=== PATIENT | male | born 1965 | race Caucasian/White ===

== ENCOUNTER 2018-09-13 12:32 | Outpatient (REF) | payer BC, SELFPAY ==
[2018-09-13 19:21] LABS: ALT 40 U/L (12-78); Anion Gap 10.4 mmol/L (3-11); BUN 19 mg/dL (7-18); CO2 26.6 mmol/L (21.0-32.0); Calcium 8.9 mg/dL (8.5-10.1); Chloride 103 mmol/L (98-107); Glucose 101 mg/dL (70-100); LDL CHOLESTEROL 104 mg/dL (<100); Potassium 3.8 mmol/L (3.5-5.1); Sodium 140 mmol/L (136-145)
== END 2018-09-13 12:52 ==
LOC: NCHCN 12:32
PROVIDERS: PCP Internal Medicine; Visit Provider Internal Medicine
DX: Z00.00 Encounter for general adult medical examination without abnormal findings (principal); M10.072 Idiopathic gout, left ankle and foot
CPT/HCPCS: 80048; 83721; 84460; 84550

== ENCOUNTER 2020-03-26 10:58 | Outpatient (REF) | payer OTHER, BC, SELFPAY ==
[2020-03-26 19:19] LABS: Abs Immature Grans 0.37 k/cumm (0.0-0.09); HCT 40.5 % (40.0-50.0); HGB 13.5 g/dL (13.5-17.5); Mean Corp. HGB Concentration 33.3 g/dL (32.0-36.0); Mean Corpuscular Hemoglobin 33.2 pg (27.0-33.0); Mean Corpuscular Volume 99.5 fL (80-95); Mean Platelet Volume 10.3 fL (8.0-11.0); RBC 4.07 m/cumm (4.50-6.00); RBC Distribution Width 14.8 % (11.8-14.1)
[2020-03-26 19:39] LABS: ALT 106 U/L (16-63); AST 106 U/L (15-37); Albumin 3.4 g/dL (3.4-5.0); Alkaline Phosphatase 148 U/L (46-116); Anion Gap 9.7 mmol/L (3-11); BUN 19 mg/dL (7-18); Bilirubin, Total 0.4 mg/dL (0.2-1.0); CO2 25.3 mmol/L (21.0-32.0); CREATININE 0.85 mg/dL (0.70-1.30); Calcium 8.8 mg/dL (8.5-10.1); Chloride 105 mmol/L (98-107); Glucose 113 mg/dL (74-106); Sodium 140 mmol/L (136-145); TSH (W/Ref FT4) 1.78 uIU/mL (0.36-3.74); Total Protein 7.1 g/dL (6.4-8.2)
[2020-03-26 19:40] LABS: Platelet Count 323 x1000/uL (130-400); White Blood Cell Count 15.69 k/cumm (4.4-10.8)
[2020-03-26 19:41] LABS: Absolute Basophil Count 0.16 k/cumm (0.0-0.2); Absolute Eosinophil Count 0.31 k/cumm (0.0-0.7); Absolute Lymphocyte Count 1.73 k/cumm (1.2-3.4)
[2020-03-26 19:42] LABS: Diff Comment Manual Differential; RBC Morphology Normal
== END 2020-03-26 11:18 ==
LOC: NCHCN 10:58
PROVIDERS: PCP Internal Medicine; Visit Provider Physician Assistant
DX: I10 Essential (primary) hypertension (principal)
CPT/HCPCS: 80053; 84443; 85025

== ENCOUNTER 2025-07-04 08:23 | Inpatient (IN) | payer BC, SELFPAY ==
[2025-07-04] VITALS (29 sets, daily range): BP systolic 114–149; BP diastolic 44–79; PULSE 67–88; RESP 16–24; TEMP 36.8–37; O2SAT 91–95
--- NOTE | 2025-07-04 08:15 | RT.EKG_ITS ---
APPROVED REPORT Exam: Resting ECG Reason for Exam: dyspnea Patient Location: E HR:85 bpm ECG Measurements Heart Rate 85 AXIS NH 173 P 42 QRSd 98 QRS 68 QT 385 T 29 QTc 459 Conclusion Sinus rhythm, rate 85 No interval abnormalities No STEMI T wave inversion III, aVF, no priors available for comparison
--- NOTE | 2025-07-04 08:27 | ED.GENADUL_ITS ---
Discharge Plan Disposition Patient Disposition: Admit to [facility] Discharge Details Clinical Impression: Colitis, Pneumonia Admit Date/Time: 07/04/25 12:34 Admit Provider: Armen Fam Attending Provider: Armen Fam Primary Care Provider: Petey Lozano ED Provider: Chris Miller Discharge Data Discharge Date/Time-TO BE ENTERED AT DEPARTURE: 07/04/25 13:17 HPI General Mode of arrival: ambulatory . Date/Time Provider Initiated Documentation: 07/04/25 08:26 . Limitations to Documentation: no limitations . Information obtained by: patient . History of Present Illness 60 year old M presents to the emergency department with the chief complaint of Cough, right sided flank pain, described as severe, with intensity rated at 7. Quality is described as aching, and is localized to the back, abdomen and right. Patient reports no radiation. Patient started experiencing this day(s) (7) and it has been constant. No relieving factors improve symptom(s), Other factors that worsen symptoms (Coughing) . Patient notes cough, fever/chills (Subjective fever earlier in the week), loss of appetite (Chronic) and shortness of breath (Chronic worse x 1 week). Patient did receive the following treatments prior to arrival, other (Discharge from [facility] yesterday with right lower lobe pneumonia, has yet to fill his antibiotic prescriptions) Related Data Home Medications ?Medication ?Instructions ?Recorded ?Confirmed Albuterol 90 mcg inhalation Q6H PRN ## 2 02/07/14 07/04/25 losartan 50 mg-hydrochlorothiazide 1 tab-cap PO DAILY #1 tab-cap 02/07/14 07/04/25 12.5 mg tablet furosemide 20 mg tablet 20 mg PO DAILY 07/04/2506/06 metoprolol succinate 100 mg 100 mg PO ONCE 07/04/25 tablet,extended release 24 hr pantoprazole 40 mg tablet,delayed 40 mg PO DAILY 07/0407/04/25 release Allergies Allergy/AdvReac Type Severity Reaction Status Date / Time No Known Allergies Allergy Verified 07/04/25 08:39 Review of Systems Constitutional Constitutional: Reports fatigue, Reports fever(s) (Subjective), Denies headache(s) and Denies weakness ENT Ears, Nose, Mouth, and Throat: Denies headache(s) and Denies neck pain Cardiovascular Cardiovascular: Denies chest pain and Reports dyspnea Respiratory Respiratory: Reports cough and Reports dyspnea Gastrointestinal Gastrointestinal: Reports abdominal pain (Right sided), Denies melena, Denies hematochezia, Denies constipation and Reports diarrhea Genitourinary Genitourinary: Denies dysuria Musculoskeletal Musculoskeletal: Reports back pain and Denies neck pain Integumentary/Breasts Skin/Breast: Denies rash Neurologic Neurologic: Denies headache(s) and Denies weakness Psychiatric Psychiatric: Reports depression and Denies suicidal ideation Endocrine Endocrine: Reports fatigue Hematologic/Lymphatic Hematologic/Lymphatic: Denies easy bleeding and Denies easy bruising Exam Const General: cooperative, healthy appearing and comfortable Orientation: alert, awake and oriented x3 HENMT Head: normal to inspection, normocephalic and atraumatic Ears: hearing grossly normal bilaterally General nose exam: external nose normal Face and sinus: normal facial exam Mouth: moist mucous membranes Throat: posterior oropharynx normal Eyes General: appearance normal, both eyes and all related structures Conjunctivae: conjunctivae normal Neck Neck: normal visual inspection, full ROM, no lymphadenopathy, no meningeal signs, trachea midline and supple Resp Effort & Inspection: normal respiratory effort, able to speak in complete sentences and cough Auscultation: diminished lung sounds on the right in the lower lung blair and wheezes (Scattered throughout, mostly clear with cough) Cardio Rate: regular rate Rhythm: regular rhythm GI Inspection: other (Ecchymosis both left and right lower quadrants) Palpation: soft, not firm, no guarding, not rigid, nontender and other (Well- healed prior surgical incision) Auscultation: normal bowel sounds Back/Spine/Pelvis Back: CVA tenderness (Right sided) Thoracic/Lumbar Spine: No lumbar spinal tenderness Skin General skin exam: no rashes or lesions noted Neuro General: patient alert, patient awake, patient oriented x3, moves all extremities and no focal motor deficits Cognition: normal cognition Speech: speech normal Gait: normal gait Sensory Exam: no sensory deficits noted Extrem General: normal to inspection, full ROM, capillary refill normal, no pedal edema and no calf tenderness Psych Appearance: grossly normal Mental Status: mental status grossly normal Medical Decision Making Armen is a 60-year-old male, 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 History of GERD, hypertension, morbid obesity. He states that he was diagnosed with COVID and since that time everything has gone downhill, he having had developed a abscess in his neck and treated at [facility], this is now completely resolved. He subsequently developed what he describes as both diverticulitis and a bleeding ulcer in his stomach requiring hospitalization and receiving blood a few years ago. 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 Most recently about 1 week ago he developed increased coughing and what he describes as right flank and back pain. He was admitted to [facility] on 06/30/2025 and subsequently discharged yesterday. He is unable to give me much information regarding this hospitalization but he did bring his discharge summary. Diagnosis was sepsis, right lower lobe pneumonia, back pain, abdominal pain, depressive disorder, chronic atelectasis, severe obesity, hyponatremia. He was discharged with prescriptions to fill including metronidazole, Ceftin, azithromycin, and simethicone. He is planning to fill these prescriptions today. He has follow- up scheduled on 07/15/2025 at [facility]. Clinically he appears well, nontoxic, he does have a slightly productive hacking cough. He is afebrile. O2 sats are 93% on room air. And he has diminished breath sounds in the right lower lobe. He denies any alcohol, tobacco, or drug use. He does not appear septic. Will attempt to review the medical discharge summary from [facility]. In the meantime we will obtain routine screening laboratory values including a urinalysis given his right sided flank pain, a single troponin, BNP, and a D-dimer although low suspicion for acute cardiac etiology or PE. Upon reevaluation patient is resting comfortably, using his phone without diffic ulty. No shortness of breath. O2 sat 94% on room air. Labs reviewed revealing white blood cell count of 11.14 and a D-dimer of 6525 sodium 134 potassium 3.1, creatinine 0.9 with a GFR of 97.78, magnesium 1.6 total bili of 2.3 AST 40 alk phosphatase 132 BNP 755 negative flu, COVID, RSV. Lipase 50. Troponin and urinalysis pending. Chest x-ray reviewed by me confirming radiology as mild increased interstitial markings in the lung bases pneumonia should be considered. Pulmonary edema should also be considered. Mild prominence of the pulmonary vasculature which may represent pulmonary venous congestion. Will plan to replenish potassium and magnesium. Will obtain CTA of the chest abdomen and pelvis to further evaluate his right sided pain, concern for PE, cholecystitis, atypical diverticulitis, renal stone, ect. In the meantime I was able to review the discharge report from [facility] CT revealed stable right diaphragm penetration with associated recent atelectasis difficult to exclude superimposed infection and dilated pulmonary arterial trunk correlate with signs of symptoms of pulmonary hypertension with no acute intra-abdominal findings. Ultrasound of the abdomen was completed with findings suggestive of mild cirrhosis with no mass or ductal dilatation. Normal gallbladder and common bile duct. Patient had fever during his hospitalization and was started on ceftriaxone and azithromycin for pneumonia and then was broadened with Flagyl for possible intra-abdominal source. Fevers resolved and his white blood cell count normalized. CRP was also trending down. Blood culture 104 grew what appeared to be a strep species but was thought to be contamination. Repeat blood cultures were negative. Patient with chronic hyponatremia. For his ongoing chronic abdominal pain was referred to gastroenterology. Follow-up with PCP in 1-2 weeks. Troponin is 9. Abdomen remains soft, nontender. No discomfort over the right upper quadrant. Awaiting CTA. INR of 2.0 Patient noted to be walk around his hospital room without complication. Drinking bottled water. Appears to be in no acute distress. I received a call from radiology at approximately 11:24 AM, findings of diffuse pneumatosis of the ascending or right colon with surrounding streaking. Surgical consultation recommended. Enlarged lymph nodes in the abdomen and pelvis noted. 3 areas of ground glass infiltrate in the left lung. Right lung is clear. No PE. Case was then discussed with our surgical team, Dr. Aguayo, who will review the case and come evaluate the patient. Please see his consultation note. Recommends IV antibiotics. Will order Zosyn. Recommends adding C. difficile testing. Recommends medical admission with surgical consult. Lactate of 1.1. Upon reevaluation patient is coughing, endorsing right sided back pain. Will give 4 mg IV morphine. Case was then discussed with our hospitalist team, Dr. Fam, who was agreeable for admission. He will write admitting orders. Standard discharge and return precautions were provided. Patient understands, is agreeable to this plan, and has no additional questions or concerns upon discharge. This documentation was generated using [employer] system, please disregard any oddities of phrase or misspellings. Medical Records Medical records reviewed: Yes I reviewed the patient's medical records. Lab Data Lab results reviewed: Yes I reviewed the patient's lab results. ECG Data Attestation: I personally reviewed and interpreted this ECG (s) as follows: Interpretation: Sinus rhythm, ventricular rate of 85. No STEMI. Please see official report by Dr. Pena [facility] All Active Problems (Updated 07/04/25 @ 14:03 by TREVER Hobbs) Pneumonia (Acute) Colitis (Acute) Social History Smoking risk assessment performed?: No Housing: apartment
[2025-07-04 09:27] LABS: Abs Immature Grans 0.13 10^3/uL (0.0-0.06); HCT 39.4 % (40.0-50.0); HGB 13.5 g/dL (13.5-17.5); Immature Grans % 1.2 %; MCH 32.7 pg (27.0-33.0); MCHC 34.3 % (32.0-36.0); MCV 95 fL (80-95); MPV 9.6 fL (8.0-11.0); Platelet Count 181 10^3/uL (130-400); RBC 4.13 10^6/uL (4.36-5.78); RDW 13.8 % (11.8-14.1); RDW-SD 48.5 fL; WBC 11.14 10^3/uL (4.4-10.8)
--- NOTE | 2025-07-04 09:40 | DI.RAD_ITS ---
Exam(s) XR CHEST 2V PA LATERAL EXAM: XR CHEST 2V PA LATERAL CLINICAL HISTORY: Chest pain TECHNIQUE: 2D digital imaging was performed of the chest. Two images were obtained. PA and lateral views were obtained. COMPARISON: No exams were available for comparison FINDINGS: MEDIASTINUM: Normal. HEART: The heart is at the upper limits of normal in size. PULMONARY VASCULATURE: There is mild prominence of the pulmonary vasculature which may represent venous congestion. LUNGS: There are increased interstitial markings in the left lung base and the right lower lobe. PLEURAL SPACE: No pleural effusion or pneumothorax. BONE:Within normal limits for the patient's age. OTHER FINDINGS:There is elevation of the right hemidiaphragm. IMPRESSION: 1. Mild prominence of the pulmonary vasculature which may represent pulmonary venous congestion. 2. Mild increased interstitial markings in the lung bases. Pneumonia should be considered. Pulmonary edema should also be considered. Please correlate clinically. DATA REPOSITORY: RADIATION DOSE DELIVERED:
[2025-07-04 09:41] LABS: INR 2.0 (0.9-1.1); PTT Activated 28.7 sec (20.6-30.2); Prothrombin Time 18.8 sec (9.1-11.1)
[2025-07-04 09:52] LABS: D-Dimer 6525 ng/mlFEU (<500)
[2025-07-04 09:56] LABS: ALT 32 U/L (16-63); AST 40 U/L (15-37); Albumin 2.8 g/dL (3.4-5.0); Alkaline Phosphatase 132 U/L (46-116); Anion Gap 12.1 mmol/L (3-11); BUN 7 mg/dL (7-18); Bilirubin, Total 2.3 mg/dL (0.2-1.0); CO2 24.9 mmol/L (21.0-32.0); Calcium 8.7 mg/dL (8.5-10.1); Chloride 97 mmol/L (98-107); Estimated GFR 97.78 (mL/min/1.73m2); Glucose 116 mg/dL (74-106); Lipase 50 U/L (<78); Magnesium 1.6 mg/dL (1.8-2.4); NT-proBNP 755 pg/mL (<300); Potassium 3.1 mmol/L (3.5-5.1); Sodium 134 mmol/L (136-145); Total Protein 7.7 g/dL (6.4-8.2); Troponin I 9 ng/L (<or=76)
[2025-07-04 10:10] LABS: COVID-19 PCR Negative (Negative); RSV PCR Negative (Negative)
--- NOTE | 2025-07-04 10:10 | DI.CT_ITS ---
Exam(s) CT CHEST PE ABD PELVIS W EXAM: CT CHEST PE ABD PELVIS W CLINICAL HISTORY: R flank pain, RLL pneumonia,elevated dimer/Bili. TECHNIQUE: Imaging Protocol: Axial CT angiography was performed with multi- slice acquisition and multi-planar and/or 3D reconstructions. CONTRAST MATERIAL: Intravenous: Omnipaque 350 Contrast volume:100 ml Oral: None COMPARISON: CR XR CHEST 2V PA LATERAL from 07/04/2025 FINDINGS: CHEST: PULMONARY ARTERIES: There are no intra-arterial filling defects to suggest the presence of acute pulmonary emboli. LUNGS: There are 3 areas of ground-glass infiltrate in the left upper lobe.The largest of these measures 2.7 x 1.5 cm. There is some elevation the right hemidiaphragm and some atelectasis in the right lung base at the level the elevated hemidiaphragm. There are no pleural effusions. MEDIASTINUM: There is no hilar nor mediastinal adenopathy. Visualized thyroid unremarkable. CARDIAC: There is mild cardiomegaly. No pericardial effusion.Thoracic aorta unremarkable and no evidence of dissection. OSSEOUS: No significant osseous lesions.No fractures evident.. ABDOMEN: There is no ascites. LIVER: There are no focal hepatic lesions nor dilatation of intrahepatic ducts. GALLBLADDER/BILIARY: No obvious gallbladder pathology. CBD is not dilated. PANCREAS: No evidence of pancreatic mass nor dilatation of the pancreatic duct. SPLEEN: Distinct spleen not seen. Instead there are multiple splenules. ADRENALS: Right adrenal gland unremarkable. There is a nodule in the mid the associated with the left adrenal gland but this appears to be separate from the adrenal gland and 1 of the mobile splenules. KIDNEYS:No cysts evident. No calculi nor hydronephrosis. No solid renal masses. ABDOMINAL AORTA: Abdominal aorta is not enlarged. LYMPH NODES: There are multiple slightly enlarged lymph nodes in the retroperitoneum in the mesentery. ABDOMINAL WALL/GI: No evidence of significant anterior abdominal wall hernia. However, there appears to be some cellulitis at the level the umbilicus. The main concern here is the appearance of the ascending-right colon and cecum which is distended and exhibits pneumatosis. Also surrounding streaking. PELVIS: LYMPH NODES: There are also some enlarged lymph nodes in both sides the pelvis GI: No evidence of appendicitis.Redundant sigmoid with diverticuli but no evidence of acute diverticulitis. URINARY BLADDER: No calculi nor masses evident REPRODUCTIVE: Prostate not enlarged. Seminal vesicles unremarkable. OSSEOUS: No significant osseous lesions. No fractures. Chronic disc space narrowing at L5-S1 level. No listhesis. IMPRESSION: 1. The main acute finding in the abdomen is diffuse pneumatosis of the ascending-right colon. Also surrounding streaking. Surgical consultation recommended. 2. There also enlarged lymph nodes in the abdomen and pelvis. 3. A distinct spleen is not evident. Instead there are multiple splenules. 4. There are 3 areas of ground-glass infiltrate in the left lung, largest measuring 2.5 x 1.7 cm. Right lung is clear. There are no pleural effusions. 5. No evidence of acute pulmonary emboli, as per request. Report called by myself to ER provider 07/04/2025 at 11:24 am. Surgical consult recommended RADIATION DOSE DELIVERED: 1,569.33mGy.cm Total DLP DATA REPOSITORY: All CT scans at this facility are submitted to the National Radiology Data Registry (NRDR) Dose Index Registry (DIR) with the [employer] (ACR). RADIATION OPTIMIZATION: All CT scans at this facility use at least one of these dose optimization techniques: automated exposure control; mA and/or kV adjustment per patient size (includes targeted exams where dose is matched to clinical indication); or iterative reconstruction.
[2025-07-04] MEDS: Normal Saline - Diluent 50 ML VIAL IJ (10:44)
[2025-07-04] MEDS: Normal Saline Flush 10 ML SYR IVP ×3 (10:44→23:44)
[2025-07-04] MEDS: Omnipaque 350 MG/ML 500 ML BTL-Imaging package IJ (10:45)
[2025-07-04] MEDS: Potassium Chloride 20 MEQ TABCR (11:12)
[2025-07-04 11:13] LABS: Troponin I 11 ng/L (<or=76)
[2025-07-04] MEDS: Magnesium Oxide 400 MG TAB 800 MG PO (11:14)
[2025-07-04 12:05] LABS: Glucose Negative (Negative)
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
[2025-07-04 12:19] LABS: C & S Indicated? No; RBC 0-2 HPF (0-2); WBC 0-2 HPF (0-5)
--- NOTE | 2025-07-04 13:14 | W.PC.ACHO ---
Registration Status: REG ER Primary Language: Preferred Language: Belarusian ED Information & Data Chief Complaint GenMedical 07/04/25 09:30 Chief Complaint GenMedical 07/04/25 08:28 Triage Note DC'd from [facility] 07/04/25 08:28 Hospital yesterday for abd pain. Complaining of ongoing SOB, report he had this in the hospital as well. Also has low back pain X2 weeks. Has had every test. Reports SOB worse with exertion. Back hunt, SOB, abd pain, multiple complaints. Most Recent Vital Signs Temperature 37.0 C 07/04/25 09:30 Temperature Source Tympanic 07/04/25 09:30 Pulse 69 07/04/25 11:20 Pulse 69 07/04/25 11:20 Respiratory Rate 22 07/04/25 09:31 Respiratory Effort Normal 07/04/25 09:31 Respiratory Depth Normal 07/04/25 09:31 Respiratory Pattern Normal 07/04/25 09:31 Blood Pressure 144/53 H 07/04/25 11:16 Blood Pressure Mean 85 07/04/25 11:16 Blood Pressure Position Sitting 07/04/25 09:30 Pulse Oximetry 94 07/04/25 11:20 Oxygen Delivery Method Room Air 07/04/25 09:30 Oxygen Flow Rate 0 07/04/25 09:30 Pain Level 10 07/04/25 09:30 Allergies No Known Allergies Allergy (Verified 07/04/25 08:39) Active Medications Generic Name Dose Route Start Last Admin Trade Name Freq PRN Reason Stop Dose Admin Iohexol 500 ml 07/04/25 10:45 07/04/25 10:45 Omnipaque 350 Mg/Ml 500 Ml Btl-Imaging Package IJ 08/03/25 23:59 100 ml DIRECTED ALEC Administration Sodium Chloride 0 ml 07/04/25 10:39 07/04/25 10:44 Normal Saline Flush 10 Ml Syr IVP 10 ml PRN PRN Administration Sodium Chloride 50 ml 07/04/25 10:45 07/04/25 10:44 Normal Saline - Diluent 50 Ml Vial IJ 50 ml DIRECTED ALEC Administration Diet Orders Category Date Time Status Nothing Per Oral [DIET] Nutrition 07/04/25 12:35 Active Diagnostics 07/04/25 07/04/25 07/04/25 Range/Units 13:00 11:52 10:44 WBC (4.4-10.8) 10^3/uL RBC (4.36-5.78) 10^6/uL Hgb (13.5-17.5) g/dL Hct (40.0-50.0) % MCV (80-95) fL MCH (27.0-33.0) pg MCHC (32.0-36.0) % RDW (11.8-14.1) % Plt Count (130-400) 10^3/uL MPV (8.0-11.0) fL Immature Gran % % Neutrophils % % Lymphocytes % % Monocytes % % Eosinophils % % Basophils % % Nucleated RBC % (0.0-0.3) % Absolute Neutrophils (1.2-6.7) 10^3/uL Absolute Lymphocytes (1.2-3.4) 10^3/uL Absolute Monocytes (0.1-0.8) 10^3/uL Absolute Eosinophils (0.0-0.7) 10^3/uL Absolute Basophils (0.0-0.2) 10^3/uL PT (9.1-11.1) sec INR (0.9-1.1) APTT (20.6-30.2) sec D-Dimer (<500) ng/mlFEU VBG Lactate 1.1 (<or=2.0) mmol/L Sodium (136-145) mmol/L Potassium (3.5-5.1) mmol/L Chloride (98-107) mmol/L Carbon Dioxide (21.0-32.0) mmol/L Anion Gap (3-11) mmol/L BUN (7-18) mg/dL Creatinine (0.70-1.30) mg/dL Est GFR (CKD-EPI 2020) (mL/min/1.73m2) Glucose (74-106) mg/dL Calcium (8.5-10.1) mg/dL Magnesium (1.8-2.4) mg/dL Total Bilirubin (0.2-1.0) mg/dL AST (15-37) U/L ALT (16-63) U/L Alkaline Phosphatase (46-116) U/L Troponin I Pending 11 (<or=76) ng/L NT-Pro-B Natriuret Pep (<300) pg/mL Total Protein (6.4-8.2) g/dL Albumin (3.4-5.0) g/dL Lipase (<78) U/L Urine Color Yellow (Yellow) Urine Clarity Clear (Clear) Urine pH 6.0 (5-8) Ur Specific [place] <= 1.005 (1.005-1.025) Urine Protein 30 H (Neg-Trace) mg/dL Urine Ketones Negative (Negative) mg/dL Urine Blood Negative (Negative) Urine Nitrite Negative (Negative) Urine Bilirubin Negative (Negative) Urine Urobilinogen 1.0 H (Up to 0.2) mg/dL Ur Leukocyte Esterase Negative (Negative) Urine RBC 0-2 (0-2) HPF Urine WBC 0-2 (0-5) HPF Ur Epithelial Cells Rare (Negative) HPF Urine Crystals Negative (Negative) HPF Urine Bacteria Negative (Negative) HPF Urine Casts Negative (Negative) LPF Urine Mucus Trace (Negative) Ur Culture Indicated? No Urine Glucose Negative (Negative) mg/dL COVID-19 Source SARS-CoV-2 (PCR) (Negative) Influenza Type A (PCR) (Negative) Influenza Type B (PCR) (Negative) RSV (PCR) (Negative) 07/04/25 Range/Units 09:15 WBC 11.14 H (4.4-10.8) 10^3/uL RBC 4.13 L (4.36-5.78) 10^6/uL Hgb 13.5 (13.5-17.5) g/dL Hct 39.4 L (40.0-50.0) % MCV 95 (80-95) fL MCH 32.7 (27.0-33.0) pg MCHC 34.3 (32.0-36.0) % RDW 13.8 (11.8-14.1) % Plt Count 181 (130-400) 10^3/uL MPV 9.6 (8.0-11.0) fL Immature Gran % 1.2 % Neutrophils % 69.8 % Lymphocytes % 13.3 % Monocytes % 13.9 % Eosinophils % 1.4 % Basophils % 0.4 % Nucleated RBC % 0.0 (0.0-0.3) % Absolute Neutrophils 7.78 H (1.2-6.7) 10^3/uL Absolute Lymphocytes 1.48 (1.2-3.4) 10^3/uL Absolute Monocytes 1.55 H (0.1-0.8) 10^3/uL Absolute Eosinophils 0.16 (0.0-0.7) 10^3/uL Absolute Basophils 0.04 (0.0-0.2) 10^3/uL PT 18.8 H (9.1-11.1) sec INR 2.0 H (0.9-1.1) APTT 28.7 (20.6-30.2) sec D-Dimer 6525 H (<500) ng/mlFEU VBG Lactate (<or=2.0) mmol/L Sodium 134 L (136-145) mmol/L Potassium 3.1 L (3.5-5.1) mmol/L Chloride 97 L (98-107) mmol/L Carbon Dioxide 24.9 (21.0-32.0) mmol/L Anion Gap 12.1 H (3-11) mmol/L BUN 7 (7-18) mg/dL Creatinine 0.9 (0.70-1.30) mg/dL Est GFR (CKD-EPI 2020) 97.78 (mL/min/1.73m2) Glucose 116 H (74-106) mg/dL Calcium 8.7 (8.5-10.1) mg/dL Magnesium 1.6 L (1.8-2.4) mg/dL Total Bilirubin 2.3 H (0.2-1.0) mg/dL AST 40 H (15-37) U/L ALT 32 (16-63) U/L Alkaline Phosphatase 132 H (46-116) U/L Troponin I 9 (<or=76) ng/L NT-Pro-B Natriuret Pep 755 H (<300) pg/mL Total Protein 7.7 (6.4-8.2) g/dL Albumin 2.8 L (3.4-5.0) g/dL Lipase 50 (<78) U/L Urine Color (Yellow) Urine Clarity (Clear) Urine pH (5-8) Ur Specific [place] (1.005-1.025) Urine Protein (Neg-Trace) mg/dL Urine Ketones (Negative) mg/dL Urine Blood (Negative) Urine Nitrite (Negative) Urine Bilirubin (Negative) Urine Urobilinogen (Up to 0.2) mg/dL Ur Leukocyte Esterase (Negative) Urine RBC (0-2) HPF Urine WBC (0-5) HPF Ur Epithelial Cells (Negative) HPF Urine Crystals (Negative) HPF Urine Bacteria (Negative) HPF Urine Casts (Negative) LPF Urine Mucus (Negative) Ur Culture Indicated? Urine Glucose (Negative) mg/dL COVID-19 Source Nasopharynx SARS-CoV-2 (PCR) Negative (Negative) Influenza Type A (PCR) Negative (Negative) Influenza Type B (PCR) Negative (Negative) RSV (PCR) Negative (Negative) Intake and Output - 24 Hour Total 07/04/25 08:23 thru 07/04/25 08:28 Weight 142.4 kg Falls Risk Assessment History of Falls No History 07/04/25 09:30 Contributing Factors No Factors 07/04/25 09:30 Ambulatory Aids Independent 07/04/25 09:30 Tubes/Lines None 07/04/25 09:30 Gait Evaluation No gait disturbance 07/04/25 09:30 Cognition No cognitive impairment 07/04/25 09:30 Fall Total Score 0 07/04/25 09:30 Level of Risk Standard/Low Risk 07/04/25 09:30 Problems (Last Reviewed 07/04/25 @ 09:04 by TREVER Hobbs) Colitis (Acute) v v v v v v v v v Sending and/or Receiving Nurses: Please use comment section below to note any information pertinent to the patient hand-off not included above. Information / Comments: Pt discharged from [facility] yestereday for admission for PNA, presents with abd pain, diagnosis of colitis, received zosyn in ED. Pt alert, oriented, verbal, ambulatory, voiding without issue. Report received from: MODESTO Perez
[2025-07-04] MEDS: PIPERACILLIN/TAZO 3.375 GM in Normal Saline 50 ML IVPB ×3 (13:16→23:53)
[2025-07-04] MEDS: MORPHine 4 MG/ML SYR IVP ×4 (13:17→23:44)
[2025-07-04 13:27] LABS: Troponin I 8 ng/L (<or=76)
[2025-07-04] MEDS: POTASSIUM CHLORIDE/D5-0.45NACL 1,000 ML 125 MEQ IV (13:53)
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
[2025-07-04] MEDS: PHYTONADIONE 10 MG in Normal Saline 50 ML 200 MG IVPB (17:28)
[2025-07-04 17:45] LABS: Acetaminophen < 2 ug/mL (10-30)
[2025-07-04 20:11] LABS: MRSA PCR Negative (Negative)
--- NOTE | 2025-07-04 22:29 | RESPIRATORY ---
RT spoke with patient regarding DION. Pt. has home BIPAP, ResMed with humidifier attached. Pt. reports does not use O2 at baseline and it's a brand new machine that pt. received it 2 months ago Through [employer]. Settings: GIOVANYO, Max IPAP: 22 Min EPAP: 12 PS: 4 Mask: Large size Nasal pillow
[2025-07-05] MEDS: POTASSIUM CHLORIDE/D5-0.45NACL 1,000 ML 125 MEQ IV ×2 (03:34→17:20)
[2025-07-05 04:00] VITALS: BP 127/51; PULSE 72; RESP 16; TEMP 36.8; O2SAT 94
[2025-07-05] MEDS: Normal Saline Flush 10 ML SYR IVP ×6 (04:23→20:06)
[2025-07-05] MEDS: MORPHine 4 MG/ML SYR IVP ×4 (04:23→16:02)
[2025-07-05] MEDS: Benzonatate 200 MG CAP PO (06:19)
[2025-07-05] MEDS: PIPERACILLIN/TAZO 3.375 GM in Normal Saline 50 ML IVPB ×3 (06:21→17:28)
[2025-07-05 06:36] LABS: Abs Immature Grans 0.11 10^3/uL (0.0-0.06); HCT 35.9 % (40.0-50.0); HGB 12.7 g/dL (13.5-17.5); Immature Grans % 0.9 %; MCH 34.1 pg (27.0-33.0); MCHC 35.4 % (32.0-36.0); MCV 97 fL (80-95); MPV 10.1 fL (8.0-11.0); Platelet Count 194 10^3/uL (130-400); RBC 3.72 10^6/uL (4.36-5.78); RDW 13.7 % (11.8-14.1); RDW-SD 48.9 fL; WBC 11.99 10^3/uL (4.4-10.8)
[2025-07-05 06:57] LABS: RBC Morphology Normal
[2025-07-05 06:59] LABS: INR 1.6 (0.9-1.1); Prothrombin Time 15.7 sec (9.1-11.1)
[2025-07-05 07:06] LABS: ALT 26 U/L (16-63); AST 33 U/L (15-37); Albumin 2.4 g/dL (3.4-5.0); Alkaline Phosphatase 115 U/L (46-116); Anion Gap 9.5 mmol/L (3-11); BUN 7 mg/dL (7-18); Bilirubin, Total 2.7 mg/dL (0.2-1.0); CO2 25.5 mmol/L (21.0-32.0); Calcium 8.3 mg/dL (8.5-10.1); Chloride 103 mmol/L (98-107); Estimated GFR 101.32 (mL/min/1.73m2); Glucose 123 mg/dL (74-106); Magnesium 1.9 mg/dL (1.8-2.4); Potassium 3.1 mmol/L (3.5-5.1); Sodium 138 mmol/L (136-145); Total Protein 6.8 g/dL (6.4-8.2)
[2025-07-05 07:56] LABS: Vitamin B12 1433 pg/mL (193-986)
[2025-07-05 08:04] VITALS: BP 118/64; PULSE 72; RESP 17; TEMP 36.7; O2SAT 94
[2025-07-05] MEDS: Furosemide 20 MG TAB PO (08:46)
[2025-07-05] MEDS: Losartan 50 MG TAB PO (08:47)
[2025-07-05] MEDS: hydroCHLOROthiazide 12.5 MG TAB PO (08:47)
[2025-07-05] MEDS: Pantoprazole 40 MG TABCR PO (08:47)
[2025-07-05] MEDS: Potassium Chloride 20 MEQ TABCR 40 MEQ PO ×3 (10:20→20:06)
[2025-07-05] MEDS: Phytonadione 5 MG TABLET 10 MG PO (10:20)
[2025-07-05 11:14] VITALS: BP 126/63; PULSE 70; RESP 17; TEMP 36.6; O2SAT 95
[2025-07-05 12:46] LABS: EPI 027-NAP1-B1 PRESUMPTIVE NEGATIVE
[2025-07-05] MEDS: Normal Saline - Diluent 50 ML VIAL IJ (14:21)
[2025-07-05] MEDS: Omnipaque 350 MG/ML 100 ML BTL IJ (14:22)
[2025-07-05] MEDS: Omnipaque 350 MG/ML 50 ML BTL IJ (14:34)
--- NOTE | 2025-07-05 14:36 | DI.CT_ITS ---
Exam(s) CT ABDOMEN PELVIS CTA EXAM: CT ABDOMEN PELVIS CTA CLINICAL HISTORY: mesenteric ischemia. TECHNIQUE: Imaging Protocol: Axial computed tomography images with coronal and sagittal reformatted images were created and reviewed CONTRAST MATERIAL: Intravenous: Omnipaque 350 Contrast volume:100 ml Oral: None COMPARISON: CT CT CHEST PE ABD PELVIS W from 07/04/2025 FINDINGS: Visualized lung bases: Elevated right hemidiaphragm with adjacent atelectasis in right lung base again noted. Focal area of infiltrate noted in the partially included left upper lobe, this corresponding to 1 of the 3 areas of similar infiltrate seen in the left lung on chest CT scan of 07/04/2025. There are no pleural effusions. ABDOMEN: AORTA AND BRANCHES: There is no evidence of abdominal aortic aneurysm nor dissection.There is no aneurysmal dilatation nor prominent stenosis evident in the common and iliac arteries and both common femoral arteries appear unremarkable. There is no evidence of stenosis at the origin of the celiac and superior mesenteric arteries and their branches are patent. There is no evidence of embolus within the SMA. The inferior mesenteric artery is also patent. Solitary right renal artery appears unremarkable. 2 left renal arteries noted, without significant stenosis. GI: There is air seen throughout the large bowel and the ascending-right colon is again noted be dilated. However, the previously described pneumatosis in the right-side of the colon is no longer evident. There is no free air but there is a small amount fluid in the pericolic gutter.. There is no fecal material in the colon, just air throughout the length of the colon and rectum. No evidence of bowel obstruction. No free air. No abscess. There is no air-gas in the portal venous system. LIVER: There are no focal hepatic lesions nor dilatation of intrahepatic ducts. GALLBLADDER/BILIARY: Mildly distended. No gallbladder wall edema nor pericholecystic fluid. No radiopaque calculi. CBD is not dilated. PANCREAS: No evidence of pancreatic mass nor dilatation of the pancreatic duct. SPLEEN: No spleen. Splenules in left upper quadrant are again noted. Splenic vein is diminutive but patent. Portal vein confluence patent. No thrombosis of the portal vein. ADRENALS: Right adrenal gland unremarkable. Left adrenal region nodule again noted difficult to determine as intrinsic adrenal nodule versus 1 of the multiple splenules in left upper quadrant. KIDNEYS: No cysts evident. No calculi nor hydronephrosis. No solid renal masses. LYMPH NODES: Multiple slightly enlarged lymph nodes again noted in the retroperitoneum and mesentery. No abnormal mesenteric fluid collections. ABDOMINAL WALL: Small fat containing umbilical hernia. There appears to be some cellulitis in this region again noted, unchanged. PELVIS: LYMPH NODES: There is no intrapelvic nor inguinal adenopathy. GI: No evidence of appendicitis.No evidence of sigmoid diverticulitis. URINARY BLADDER: No calculi nor masses evident REPRODUCTIVE: Prostate size normal. Seminal vesicles unremarkable. OSSEOUS: No fractures. No significant osseous lesions. IMPRESSION: 1. Compared to the CT scan of 07/04/2025 the previously described pneumatosis in the ascending-right colon is less evident on the present study. There is no free air but there does appear to be a small amount of fluid in the right paracolic gutter at and below this level now evident. There is no gas in the portal venous system. Close follow-up recommended 2. The celiac, SMA, and CARIDAD arteries are patent. No significant atherosclerotic narrowing and no evidence of intraluminal filling defects/emboli 3. Patchy infiltrate in the left lung, as evident on yesterday's chest CT scan. Preliminary V rad report was reviewed. RADIATION DOSE DELIVERED: 1,388.9mGy.cm Total DLP DATA REPOSITORY: All CT scans at this facility are submitted to the National Radiology Data Registry (NRDR) Dose Index Registry (DIR) with the [employer] (A[employer]). RADIATION OPTIMIZATION: All CT scans at this facility use at least one of these dose optimization techniques: automated exposure control; mA and/or kV adjustment per patient size (includes targeted exams where dose is matched to clinical indication); or iterative reconstruction.
[2025-07-05 15:07] VITALS: BP 112/57; PULSE 74; RESP 16; TEMP 36.5; O2SAT 94
--- NOTE | 2025-07-05 15:10 | DI.VRAD_ITS ---
PROCEDURE INFORMATION: Exam: CTA Abdomen and Pelvis With Contrast Exam date and time: 07/05/2025 2:21 PM Age: 60 years old Clinical indication: Abdominal pain; Generalized; Mesenteric ischemia TECHNIQUE: Imaging protocol: Computed tomographic angiography of the abdomen and pelvis with contrast. Exam focused on the arteries. 3D rendering (Not supervised by radiologist): MIP and/or 3D reconstructed images were created by the technologist. Radiation optimization: All CT scans at this facility use at least one of these dose optimization techniques: automated exposure control; mA and/or kV adjustment per patient size (includes targeted exams where dose is matched to clinical indication); or iterative reconstruction. Contrast material: OMNI 350; Contrast volume: 125 ml; Contrast route: INTRAVENOUS (IV); COMPARISON: CT CHEST PE ABD PELVIS W 07/04/2025 10:41 AM FINDINGS: Lungs: Consolidation in the right middle lobe and right lower lobe. Patchy opacity in the lingula. Findings may represent atelectasis or pneumonia. Coronary arteries: Coronary artery calcifications may indicate coronary artery disease. Aorta: No aortic aneurysm. No aortic dissection. Celiac and mesenteric arteries: No occlusion or significant stenosis. Renal arteries: No occlusion or significant stenosis. Right iliac arteries: No occlusion or significant stenosis. Left iliac arteries: No occlusion or significant stenosis. Liver: No mass. Gallbladder and biliary ducts: No gallstones in the gallbladder Pancreas: Unremarkable. No mass. No ductal dilation. Spleen: The spleen is absent. There are multiple small splenules in the left upper quadrant Adrenal glands: 24 x 24 mm left adrenal nodule. Seventy Hounsfield units.. Kidneys and ureters: There is no evidence of renal or ureteral calcifications. Stomach and bowel: Unremarkable. No obstruction. No mucosal thickening. Appendix: No evidence of appendicitis. Intraperitoneal space: No evidence of mesenteric ischemia. Mild amount of free fluid in the right paracolic gutter Lymph nodes: Unremarkable. No enlarged lymph nodes. Urinary bladder: Unremarkable. No mass. Reproductive: Unremarkable as visualized. Bones/joints: No acute fracture. Soft tissues: Unremarkable. IMPRESSION: 1. No evidence of mesenteric ischemia. 2. Consolidation in the right middle lobe and right lower lobe. Patchy opacity in the lingula. Findings may represent atelectasis or pneumonia. 3. 24 x 24 mm left adrenal nodule. Seventy Hounsfield units.. Non-emergent adrenal CT is recommended. (Reference: Varun) References: Lazo-Aguayo WW, et al. Management of Incidental Adrenal Masses: A White Paper of the ACR Incidental Findings Committee. J Am Zoran Radiol. 2017;14(8):9030-5279. Dictated and Authenticated by: Austin Aldana MD. Orderin Olivier Vela MD
[2025-07-05] MEDS: Acetaminophen 325 MG TAB 650 MG PO (15:35)
--- NOTE | 2025-07-05 16:21 | W.PM.PROGNOT ---
Date of Service Date of service: 07/05/25 Time of Service: 16:21 Assessment and Plan Assessment and plan (1) Colitis: Status: Acute Assessment and plan: Severe RUQ/flank pain out of proportion to exam, CT findings both very consistent with ichemic bowell. Pain a little worse this morning, d/w Dr. Aguayo and CTA of abd/pelvis done. Repeat lactate still normal, which is reassuring. Repeat CT showing some imrpovement, no clear stenosis in intestinal circulation on CTA 07/05 Follow, treat pain with prn morphine, can increase dose to 6mg. NPO and IV pip/tazo. If he worsens clinically he may still need emergent surgery. (2) GERD (gastroesophageal reflux disease): Status: Chronic Assessment and plan: continue PPI. (3) Hypertension: Status: Chronic Assessment and plan: BPs have been down. With acute illness hold losartan/HCTZ short term. continue metoprolol (4) Liver dysfunction: Status: Acute Assessment and plan: He denies h/o cirrhosis but does have elevation of AST going back years. INR and bili more new which are concerning for failing liver function. APAP level <2. INR proportionally higher, he has poor nutrition, give a dose of vitamin K with drop in INR. Give another 10mg orally. He is at risk for MASLD. Normal platelets, imaging not c/w cirrhosis of liver, denies h/o drug use or alcohol. Bili still high. Follow INR, get LFTs for fractionated bili. (5) Pneumonia: Status: Acute Assessment and plan: Never finished therapy for pneumonia on recent admission, LLL infiltrate on admission CT. MRSA swab negative. splenectomy raises infectious risk. Continue pip/tazo and doxycycline. Sputum culture sent. (6) DVT prophylaxis: Status: Acute Assessment and plan: INR elevated, but coming down. Add enoxaparin. TEDS/SCDs for now. Subjective Subjective Patient reports: still having pain and voiding w/o difficulty; denies diarrhea, vomiting or fever Interval history since last seen: Pain in RUQ to back still bad today. He still doesn't have an appetite. Still coughing, SOB with coughing fits. Exam Narrative Exam Narrative: GEN: Alert and oriented x 4, uncomfortable, but no acute distress at rest. HEENT: Conjunctiva clear, no icterus, MMM LUNGS: course at bases, otherwise CTAB with normal effort CV: RRR with no murmurs, gallops, or rubs. ABD: active bowel sounds, soft, moderate distended, no clear masses or ascites noted. moderately tender in RUQ. no rebound.. EXT: no cyanosis, clubbing. 1+ edema to shins fariha Objective Last Vital Signs Temp 36.5 C 07/05/25 15:07 Pulse 74 07/05/25 15:07 Resp 16 07/05/25 15:07 BP 112/57 L 07/05/25 15:07 Pulse Ox 94 07/05/25 15:07 Laboratory Results - last 24 hr 07/04/25 07/04/25 07/05/25 17:16 18:30 05:18 WBC 11.99 H RBC 3.72 L Hgb 12.7 L Hct 35.9 L MCV 97 H MCH 34.1 H MCHC 35.4 RDW 13.7 Plt Count 194 MPV 10.1 Immature Gran % 0.9 Neutrophils % 64.7 Lymphocytes % 17.8 Monocytes % 13.8 Eosinophils % 2.1 Basophils % 0.7 Nucleated RBC % 0.0 Absolute Neutrophils 7.76 H Absolute Lymphocytes 2.13 Absolute Monocytes 1.65 H Absolute Eosinophils 0.25 Absolute Basophils 0.08 RBC Morphology Normal PT 15.7 H INR 1.6 H VBG Lactate Sodium 138 Potassium 3.1 L Chloride 103 Carbon Dioxide 25.5 Anion Gap 9.5 BUN 7 Creatinine 0.8 Est GFR (CKD-EPI 2020) 101.32 Glucose 123 H Calcium 8.3 L Magnesium 1.9 Total Bilirubin 2.7 H AST 33 ALT 26 Alkaline Phosphatase 115 Total Protein 6.8 Albumin 2.4 L Vitamin B12 1433 H Stl C.difficile Tox PCR Acetaminophen < 2 MRSA (TEM-PCR) Negative 07/05/25 07/05/25 11:38 11:55 WBC RBC Hgb Hct MCV MCH MCHC RDW Plt Count MPV Immature Gran % Neutrophils % Lymphocytes % Monocytes % Eosinophils % Basophils % Nucleated RBC % Absolute Neutrophils Absolute Lymphocytes Absolute Monocytes Absolute Eosinophils Absolute Basophils RBC Morphology PT INR VBG Lactate 1.0 Sodium Potassium Chloride Carbon Dioxide Anion Gap BUN Creatinine Est GFR (CKD-EPI 2020) Glucose Calcium Magnesium Total Bilirubin AST ALT Alkaline Phosphatase Total Protein Albumin Vitamin B12 Stl C.difficile Tox PCR Negative Acetaminophen MRSA (TEM-PCR) Time Spent with Patient Time Spent with Patient: 35-49 minutes Time was spent: preparing to see the patient(eg.review tests), obtaining and/or reviewing separately otained hiistory, ordering medications,tests, procedures, referring, communicating with other health animal care specialist, indepentently interpreting results, counseling the patient and care coordination
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
[2025-07-05] MEDS: Enoxaparin 40 MG/0.4 ML SYR SC (17:28)
[2025-07-05] MEDS: Mineral Oil-Enema 133 ML BTL PR (17:29)
[2025-07-05 20:05] VITALS: BP 107/58; PULSE 72; RESP 22; TEMP 36.5; O2SAT 93
[2025-07-05] MEDS: MORPHine 10 MG/ML VIAL 6 MG IVP (20:19)
[2025-07-05 23:27] VITALS: BP 108/55; PULSE 73; TEMP 36.8; O2SAT 92
[2025-07-06] MEDS: PIPERACILLIN/TAZO 3.375 GM in Normal Saline 50 ML IVPB ×5 (00:35→23:34)
[2025-07-06] MEDS: Normal Saline Flush 10 ML SYR IVP ×6 (00:35→21:03)
[2025-07-06] MEDS: MORPHine 10 MG/ML VIAL 6 MG IVP ×6 (00:36→20:27)
[2025-07-06] MEDS: Acetaminophen 325 MG TAB 650 MG PO (01:45)
[2025-07-06] MEDS: POTASSIUM CHLORIDE/D5-0.45NACL 1,000 ML 125 MEQ IV ×2 (03:50→10:27)
[2025-07-06 04:58] VITALS: BP 108/61; PULSE 71; RESP 18; TEMP 36.8; O2SAT 92
[2025-07-06 07:10] LABS: Prothrombin Time 15.1 sec (9.1-11.1)
[2025-07-06 07:22] LABS: ALT 29 U/L (16-63); AST 37 U/L (15-37); Albumin 2.5 g/dL (3.4-5.0); Alkaline Phosphatase 119 U/L (46-116); Anion Gap 8.2 mmol/L (3-11); BUN 4 mg/dL (7-18); Bilirubin, Direct 1.0 mg/dL (0.0-0.2); Bilirubin, Total 2.4 mg/dL (0.2-1.0); CO2 27.8 mmol/L (21.0-32.0); Calcium 8.5 mg/dL (8.5-10.1); Chloride 103 mmol/L (98-107); Estimated GFR 105.49 (mL/min/1.73m2); Glucose 125 mg/dL (74-106); Potassium 3.5 mmol/L (3.5-5.1); Sodium 139 mmol/L (136-145); Total Protein 7.1 g/dL (6.4-8.2)
[2025-07-06 07:32] LABS: INR 1.5 (0.9-1.1)
[2025-07-06] MEDS: Pantoprazole 40 MG TABCR PO (07:55)
[2025-07-06] MEDS: Enoxaparin 40 MG/0.4 ML SYR SC (07:56)
[2025-07-06 08:50] VITALS: BP 115/62; PULSE 85; RESP 17; TEMP 36.5; O2SAT 95
[2025-07-06] MEDS: Benzonatate 200 MG CAP PO (09:10)
--- NOTE | 2025-07-06 10:38 | W.PM.PROGNOT ---
Date of Service Date of service: 07/06/25 Time of Service: 10:38 Assessment and Plan Assessment and plan (1) Colitis: Status: Acute Assessment and plan: His colitis is markedly improved on the CT angiogram performed yesterday, and I do not see any signs of any mesenteric thrombi that would account for the pneumatosis that was previously seen in the ascending colon (which is now resolved). But he continues to complain of quite significant pain. In that regard, I think visualization of the mucosa with colonoscopy is the most reasonable course of action here. Certainly, the procedure carries with it some risk, but child does have a good understanding and appreciation of that, and he would like to proceed anyway. I will bowel prep him tonight, and we will plan for colonoscopy tomorrow. Subjective Subjective Interval history since last seen: Armen continues to complain of abdominal pain that ranges from 9 out of 10 to 14 out of 10. He denies any nausea or vomiting. He has been able to tolerate liquids without much discomfort. He does think he feels a little more bloated this morning. Exam GI Other: His abdomen is soft, but it is distended, and a little bit tympanitic in the mid abdomen. He really is not very tender. Objective Last Vital Signs Temp 97.7 F 07/06/25 08:50 Pulse 85 07/06/25 08:50 Resp 17 07/06/25 08:50 BP 115/62 07/06/25 08:50 Pulse Ox 95 07/06/25 08:50 Laboratory Results - last 24 hr 07/05/25 07/05/25 07/06/25 11:38 11:55 06:10 PT 15.1 H INR 1.5 H VBG Lactate 1.0 Sodium 139 Potassium 3.5 Chloride 103 Carbon Dioxide 27.8 Anion Gap 8.2 BUN 4 L Creatinine 0.7 Est GFR (CKD-EPI 2020) 105.49 Glucose 125 H Calcium 8.5 Total Bilirubin 2.4 H Conjugated Bilirubin 1.0 H AST 37 ALT 29 Alkaline Phosphatase 119 H Total Protein 7.1 Albumin 2.5 L Stl C.difficile Tox PCR Negative Time Spent with Patient Time Spent with Patient: 35-49 minutes Time was spent: preparing to see the patient(eg.review tests), ordering medications,tests, procedures, referring, communicating with other health pet care associate, indepentently interpreting results, counseling the patient and care coordination
[2025-07-06 11:23] VITALS: BP 120/56; PULSE 79; RESP 17; TEMP 36.4; O2SAT 93
[2025-07-06] MEDS: Albuterol 2.5 MG/3 ML INH SOLN VIAL UPD (13:19)
[2025-07-06 13:26] VITALS: PULSE 75; O2SAT 96
--- NOTE | 2025-07-06 13:40 | PGE_ITS ---
Date of Service Date of service: 07/06/25 Time of Service: 13:40 Assessment and Plan Assessment and plan (1) Colitis: Status: Acute Assessment and plan: Severe RUQ/flank pain out of proportion to exam, CT findings on admission consistent with ichemic bowel, however no ischemia on CTA 07/05 and bowel looked better. Repeat lactate snormal, which is reassuring. Despite pain, tolerating po. C. diff negaitve. Continue IV pip/tazo. Per Dr. Aguayo, plan colonoscopy, possible biopsy in am. (2) GERD (gastroesophageal reflux disease): Status: Chronic Assessment and plan: continue PPI. (3) Hypertension: Status: Chronic Assessment and plan: Holding losartan/HCTZ short term. BP normal. continue metoprolol (4) Liver dysfunction: Status: Acute Assessment and plan: He denies h/o cirrhosis but does have elevation of AST going back years. INR an d bili more new which are concerning for failing liver function. APAP level <2. INR proportionally higher, he has poor nutrition, give 2 doses of vitamin K with drop in INR but did not normalize. He is at risk for MASLD. Normal platelets, imaging not c/w cirrhosis of liver, denies h/o drug use or alcohol. Bili still high. hepatitis panel pending. Follow (5) Pneumonia: Status: Acute Assessment and plan: Never finished therapy for pneumonia on recent admission, with new LLL infiltra te on admission CT. MRSA swab negative. splenectomy raises infectious risk. Continue pip/tazo and doxycycline. Sputum culture pending. Add expectorant, cough medication for comfort, acapella. (6) DVT prophylaxis: Status: Acute Assessment and plan: INR elevated, but coming down. Added enoxaparin 07/05. Subjective Subjective Patient reports: still having pain and voiding w/o difficulty; denies diarrhea, blood in stool, vomiting or fever Interval history since last seen: Events: CTA with good mesenteric flow, colon looked improved. Still having pain on right side around right flank, not better. Cough still hurts, having a hard time getting up sputum, makes him feel a little SOB at times. Still stooling, liquid. He is eating. Exam Narrative Exam Narrative: GEN: Alert and oriented x 4, uncomfortable, but no acute distress at rest. HEENT: Conjunctiva clear, no icterus, MMM LUNGS: course at bases, otherwise CTAB with normal effort CV: RRR with no murmurs, gallops, or rubs. ABD: active bowel sounds, soft, moderate distended, no clear masses or ascites noted. mildly tender in RUQ. no rebound/guarding. EXT: no cyanosis, clubbing. 1+ edema to shins fariha Objective Last Vital Signs Temp 36.4 C L 07/06/25 11:23 Pulse 75 07/06/25 13:26 Resp 17 07/06/25 11:23 BP 120/56 L 07/06/25 11:23 Pulse Ox 96 07/06/25 13:26 Laboratory Results - last 24 hr 07/06/25 06:10 PT 15.1 H INR 1.5 H Sodium 139 Potassium 3.5 Chloride 103 Carbon Dioxide 27.8 Anion Gap 8.2 BUN 4 L Creatinine 0.7 Est GFR (CKD-EPI 2020) 105.49 Glucose 125 H Calcium 8.5 Total Bilirubin 2.4 H Conjugated Bilirubin 1.0 H AST 37 ALT 29 Alkaline Phosphatase 119 H Total Protein 7.1 Albumin 2.5 L Time Spent with Patient Time Spent with Patient: 35-49 minutes Time was spent: preparing to see the patient(eg.review tests), obtaining and/or reviewing separately otained hiistory, ordering medications,tests, procedures, referring, communicating with other health women's health care nurse practitioner, indepentently interpreting results, counseling the patient and care coordination
[2025-07-06] MEDS: Simethicone 80 MG CHEW 40 MG PO ×3 (13:53→20:26)
[2025-07-06] MEDS: guaiFENesin 600 MG TABCR PO ×2 (13:59→20:26)
[2025-07-06] MEDS: Dextromethorphan 6 MG/ML Suspension 60 MG PO (15:55)
[2025-07-06] MEDS: Nulytely 4000 ML BTL PO (18:04)
[2025-07-06 20:11] VITALS: BP 139/72; PULSE 91; RESP 14; TEMP 36.7; O2SAT 92
[2025-07-07] VITALS (29 sets, daily range): BP systolic 118–145; BP diastolic 51–75; PULSE 80–95; RESP 13–31; TEMP 36.5–36.8; O2SAT 92–96; BMI 43.7
[2025-07-07] MEDS: MORPHine 10 MG/ML VIAL 6 MG IVP ×4 (03:28→20:10)
[2025-07-07] MEDS: PIPERACILLIN/TAZO 3.375 GM in Normal Saline 50 ML IVPB (05:34)
[2025-07-07 07:18] LABS: ALT 29 U/L (16-63); AST 41 U/L (15-37); Albumin 2.7 g/dL (3.4-5.0); Alkaline Phosphatase 133 U/L (46-116); Anion Gap 8.7 mmol/L (3-11); BUN 3 mg/dL (7-18); Bilirubin, Total 2.6 mg/dL (0.2-1.0); CO2 29.3 mmol/L (21.0-32.0); Calcium 8.7 mg/dL (8.5-10.1); Chloride 101 mmol/L (98-107); Estimated GFR 105.49 (mL/min/1.73m2); Glucose 99 mg/dL (74-106); Potassium 3.7 mmol/L (3.5-5.1); Sodium 139 mmol/L (136-145); Total Protein 7.5 g/dL (6.4-8.2)
[2025-07-07] MEDS: guaiFENesin 600 MG TABCR PO ×2 (09:13→20:09)
[2025-07-07] MEDS: Pantoprazole 40 MG TABCR PO (09:13)
[2025-07-07] MEDS: Normal Saline Flush 10 ML SYR IVP ×3 (09:47→20:16)
[2025-07-07 10:14] LABS: HBs Antibody, Qual Negative (See Note); HBs Antibody, Quant <3.1 mIU/mL (See Note); Hepatitis C Ab w Rflx HCV PCR Negative (Negative)
--- NOTE | 2025-07-07 10:26 | CMPROGNOTE_ITS ---
Date of service: 07/07/25 Time of Service: 10:26 Care Management Progress Note Progress Note Text Progress Note Text: Armen was sitting up in a chair when CM met with him. He had gone to the OR for a colonoscopy earlier in the day but did not know what the findings were. Armen is doing well clinically. He shared that his pain is getting better but is not gone. He is tolerating a regular diet and overall, feels much improved. Discharge Potential Discharge Needs: PCP F/U Appt and Surgical F/U Appt Anticipated Barriers to Discharge: None Identified Patient/Family Education Needs: Review discharge instructions, discuss Ask Me Three Transportation: Private vehicle Plan: Anticipate Armen will be discharged home with no new services when medically stable. He will follow up with his community providers and plan of care and transport with family. CM will follow and continue too support discharge planning efforts. Social Determinants of Health Screening Social Determinants of health last assessed in clinic: 07/07/25 Will the Patient Participate in the Screening?: Yes Do you worry about having a steady place to live?: no Problems where you live: no known problems In the past 12 months, have you had to go without electric, gas, oil or water in your home?: no 1. Within the past 12 months, we worried whether our food would run out before we got money to buy more.: Never true 2. Within the past 12 months, the food we bought just didn't last and we didn't have money to get more.: Never true Has lack of transportation kept you from medical appointments or from doing things needed for daily living?: no Has anyone in your life made you feel unsafe or unsupported?: no How hard is it for you to pay for the very basics like food, housing, medical care, and heating? Would you say it is:: Not hard at all Do you want help finding or keeping work or a job?: I do not need or want help If for any reason you need help with day-to-day activities such as bathing, preparing meals, shopping, managing finances, etc., do you get the help you need?: I don?t need any help How often do you feel lonely or isolated from those around you?: Never Do you speak a language other than Bulgarian at home?: Yes Does the patient want assistance with any of the above?: Yes Health Related Social Needs Health related social needs: education (Z55.6)
--- NOTE | 2025-07-07 11:00 | NUR.NOTE ---
Nursing Note: Documentation by FATUMA Vasques student reviewed.
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
[2025-07-07] MEDS: Lactated Ringers 1,000 ML 30 ML IV (12:50)
--- NOTE | 2025-07-07 13:09 | BOWEL_PTH ---
PATIENT: Armen Woo LOC: U#:[id number] AGE/SX: 60/M ROOM: [id number] RE07/04/[address]: Armen Fam : 1965 BED: A DIS: 07/09/2025 SPEC #: [id number] RECD: 07/07/25 17:18 STATUS: GUILLERMINA REQ #: [id number] RAMIRO: 07/07/25 13:[address]: Armen Fam DEPT: Surgical Specimen RECD BY: Malena Kaplan ENTERED: 07/07/25 17:19 SP TYPE: Bowel OTHR DR: Peety Lozano Tissues: 1 - BIOPSY BOWEL Procedures: GROSS AND MICRO LEVEL 4 Comments: [id number]
[2025-07-07] MEDS: fentaNYL 100 MCG/2 ML VIAL IVP ×2 (13:28→13:45)
--- NOTE | 2025-07-07 13:36 | W.COLOREPORT ---
Date of service: 07/07/25 Time of Service: 13:36 Colonoscopy Report Date of procedure: 07/07/25 Pre-op diagnosis general: Colitis Post-op diagnosis procedure note: other (Crohn's disease) Procedure: Colonoscopy with biopsies Surgeon: Dane Aguayo Anesthesia Type: General:No Airway Pathology: other (Cold forceps biopsies of cecum) Complications: None Disposition: PACU Indications: Armen is a 60-year-old man with an acute exacerbation of chronic abdominal pain. He had a CAT scan that showed pneumatosis of the ascending colon. He started broad-spectrum antibiotics, with no significant improvement of his pain. Repeat imaging demonstrated resolution of the pneumatosis, but ongoing colitis. Prep: GoLYTELY Procedure Start Time: 12:59 Procedure End Time: 13:15 Retraction Time: 4 Findings: Friable edematous mucosa cecum and ascending colon with ulcerative regions and cobblestoning consistent with Crohn's Procedure Description: After the induction of anesthesia, and with the patient in left lateral decubitus position, I began by performing an external anorectal exam.? Perineum and skin were normal, as was the anal verge.? There was no evidence of external hemorrhoids.? Next, I performed a digital rectal exam.? This was normal next, I advanced a colonoscope into the rectal vault.? I performed retroflexion.? This appeared normal. Mucosa of the rectum was healthy appearing, no signs of inflammation or irritation. Had a normal vascular pattern. This does not seem consistent with ulcerative colitis.? Using irrigation, I then advanced the colonoscope beyond the rectal folds and into the sigmoid colon before advancing towards the cecum.? There is sigmoid diverticulosis.? There are ulcerative lesions in the ascending colon beginning just proximal to the hepatic flexure. The adjacent mucosa is erythematous and friable. This extends all the way down to the base of the cecum. I could not cannulate the terminal ileum. I did perform cold forceps biopsies of multiple portions of the cecum and ascending colon, although clinically this seems most consistent with Crohn's disease. There was an appropriate amount of bleeding from the biopsy sites, but nothing that appeared concerning. I do not believe that this is at all consistent with ischemic colitis. Having obtained satisfactory tissue for pathologic diagnosis, I performed a limited evaluation of the remaining colonic mucosa in an effort to expedite the procedure and maintain Armen safety. As mentioned above, there are signs of sigmoid diverticulosis. Otherwise the visualized mucosa was normal and healthy appearing down to the anal column. [place] Bowel Prep [place] Bowel Prep Right Colon: 2 Left Colon: 2 Transverse Colon: 2 Total Score: 6
--- NOTE | 2025-07-07 14:23 | W.PM.PROGNOT ---
Date of Service Date of service: 07/07/25 Time of Service: : Assessment and Plan Assessment and plan (1) Colitis: Status: Acute Assessment and plan: Severe RUQ/flank pain out of proportion to exam, CT findings on admission consistent with ichemic bowel, however no ischemia on CTA 07/05 and bowel looked better. Repeat lactate snormal, which is reassuring. Despite pain, tolerating po. C. diff negaitve. Colonscopy today, per Dr. Aguayo looked like ulcerative colitis. Stoppign antibiotics and start steroids. (2) GERD (gastroesophageal reflux disease): Status: Chronic Assessment and plan: continue PPI. (3) Hypertension: Status: Chronic Assessment and plan: Holding losartan/HCTZ short term. BP a little high. continue metoprolol and resume losartan. (4) Liver dysfunction: Status: Acute Assessment and plan: He denies h/o cirrhosis but does have elevation of AST going back years. INR and bili more new which are concerning for failing liver function. APAP level <2. INR proportionally higher, he has poor nutrition, give 2 doses of vitamin K with drop in INR but did not normalize. He is at risk for MASLD. Normal platelets, imaging not c/w cirrhosis of liver, denies h/o drug use or alcohol. Bili still high but not trending worse. hepatitis panel pending. Follow, should get hepatology evaluation after discharge, if IBD he may be at risk for autoimmune coliitis as well. (5) Pneumonia: Status: Acute Assessment and plan: Never finished therapy for pneumonia on recent admission, with new LLL infiltrate on admission CT. MRSA swab negative. splenectomy raises infectious risk. Has been on pip/tazo and doxycycline. No longer GI indication for antibiotics. Sputum culture preliminarily liliam and hemal. Will finish 5 day course of ceftriaxone and doxy Improved with expectorant, cough medication for comfort, acapella. (6) DVT prophylaxis: Status: Acute Assessment and plan: INR elevated, but coming down. Added enoxaparin 07/05. Subjective Subjective Patient reports: voiding w/o difficulty; denies nausea, vomiting or fever Interval history since last seen: Events: on clears with bowel prep 07/06, lots of BMs, feels better today Breathing also feels better with cough suppressants (mupirocin and DXM) He feels better, still pain but not as bad. cough has improved. Less SOB. Exam Narrative Exam Narrative: GEN: Alert and oriented x 4, uncomfortable, but no acute distress at rest. HEENT: Conjunctiva clear, no icterus, MMM LUNGS: course at bases, otherwise CTAB with normal effort CV: RRR with 2/6 systolic murmur, no gallops, or rubs. ABD: active bowel sounds, soft, moderate distended, no clear masses or ascites noted. mildly tender diffusely but more in RUQ. no rebound/guarding. EXT: no cyanosis, clubbing. 1+ edema to shins fariha Objective Last Vital Signs Temp 36.5 C 07/07/25 14:06 Pulse 88 07/07/25 14:06 Resp 17 07/07/25 14:06 BP 142/75 H 07/07/25 14:06 Pulse Ox 94 07/07/25 14:06 Laboratory Results - last 24 hr 07/04/25 07/07/25 18:52 06:22 Sodium 139 Potassium 3.7 Chloride 101 Carbon Dioxide 29.3 Anion Gap 8.7 BUN 3 L Creatinine 0.7 Est GFR (CKD-EPI 2020) 105.49 Glucose 99 Calcium 8.7 Total Bilirubin 2.6 H AST 41 H ALT 29 Alkaline Phosphatase 133 H Total Protein 7.5 Albumin 2.7 L Hep Bs Antigen Negative Hep Bs Antibody Negative Hep Bs Antibody, Quant <3.1 Hep B Core Total Ab Negative Hepatitis C Antibody Negative Time Spent with Patient Time Spent with Patient: 35-49 minutes Time was spent: preparing to see the patient(eg.review tests), obtaining and/or reviewing separately otained hiistory, ordering medications,tests, procedures, referring, communicating with other health ambulatory care nurse, indepentently interpreting results, counseling the patient and care coordination
[2025-07-07] MEDS: cefTRIAXone 2 GM/50 ML BAG IVPB (15:21)
--- NOTE | 2025-07-07 15:25 | W.ANESPOSTOP ---
Postoperative Evaluation Date, Time and Location Date Performed: 07/07/25 Time Performed: 13:50 Patient Location: PACU Vital Signs Most Recent Imported Vital Signs: Most Recent Vital Signs Temp Pulse Resp BP Pulse Ox 36.5 C 81 17 120/55 L 93 07/07/25 14:35 07/07/25 14:35 07/07/25 14:35 07/07/25 14:35 07/07/25 14:35 Pain Score Most Recent Pain Score: Most Recent Pain Score Pain Level [Right Upper 7 07/06/25 15:35 Abdomen] Pain Level 6 07/07/25 14:35 Assessment Mental Status: Awake (Alert & Oriented to Patient Baseline) Airway and Respiratory Function: Patent airway with normal (patient baseline) respiratory exam Cardiovascular Function: Hemodynamically Stable Hydration Status: Adequately Hydrated Nausea & Vomiting: No Nausea or Vomiting Pain: Pain is Moderate or Severe Postoperative Pain Management: Ongoing pain, patient will be managed as an inpatient Peripheral Nerve Block: Patient did not receive a nerve block
[2025-07-07] MEDS: Acetaminophen 325 MG TAB 650 MG PO ×2 (15:50→20:09)
[2025-07-07 16:28] LABS: INR 1.7 (0.9-1.1); Prothrombin Time 16.3 sec (9.1-11.1)
[2025-07-07] MEDS: Simethicone 80 MG CHEW 40 MG PO ×2 (17:25→20:09)
[2025-07-07] MEDS: Enoxaparin 40 MG/0.4 ML SYR SC (20:09)
[2025-07-07] MEDS: Doxycycline Hyclate 100 MG CAP PO (20:09)
[2025-07-07] MEDS: Polyethylene Glycol 3350 17 GM PACKET PO (20:09)
[2025-07-08] MEDS: MORPHine 10 MG/ML VIAL 6 MG IVP ×6 (00:07→20:58)
[2025-07-08] MEDS: Acetaminophen 325 MG TAB 650 MG PO ×2 (00:07→04:19)
[2025-07-08 02:59] VITALS: BP 131/63; PULSE 79; RESP 18; TEMP 36.7; O2SAT 93
[2025-07-08] MEDS: Pantoprazole 40 MG TABCR PO (07:17)
[2025-07-08 07:28] LABS: HCT 38.2 % (40.0-50.0); HGB 12.7 g/dL (13.5-17.5); MCH 32.1 pg (27.0-33.0); MCHC 33.2 % (32.0-36.0); MCV 97 fL (80-95); MPV 9.7 fL (8.0-11.0); Platelet Count 237 10^3/uL (130-400); RBC 3.96 10^6/uL (4.36-5.78); RDW 14.3 % (11.8-14.1); RDW-SD 50.4 fL; WBC 9.71 10^3/uL (4.4-10.8)
[2025-07-08 07:44] LABS: ALT 27 U/L (16-63); AST 37 U/L (15-37); Albumin 2.6 g/dL (3.4-5.0); Alkaline Phosphatase 127 U/L (46-116); Anion Gap 8.1 mmol/L (3-11); BUN 3 mg/dL (7-18); Bilirubin, Total 2.0 mg/dL (0.2-1.0); CO2 29.9 mmol/L (21.0-32.0); Calcium 8.8 mg/dL (8.5-10.1); Chloride 100 mmol/L (98-107); Estimated GFR 105.49 (mL/min/1.73m2); Glucose 95 mg/dL (74-106); Potassium 3.4 mmol/L (3.5-5.1); Sodium 138 mmol/L (136-145); Total Protein 7.5 g/dL (6.4-8.2)
[2025-07-08] MEDS: Enoxaparin 40 MG/0.4 ML SYR SC ×2 (08:06→19:38)
[2025-07-08] MEDS: Polyethylene Glycol 3350 17 GM PACKET PO ×2 (08:06→19:38)
[2025-07-08] MEDS: guaiFENesin 600 MG TABCR PO ×2 (08:07→19:38)
[2025-07-08] MEDS: Simethicone 80 MG CHEW 40 MG PO ×4 (08:07→20:54)
[2025-07-08] MEDS: Doxycycline Hyclate 100 MG CAP PO ×2 (08:08→19:38)
[2025-07-08] MEDS: Losartan 50 MG TAB PO (08:08)
[2025-07-08 08:12] VITALS: BP 136/61; PULSE 77; RESP 16; TEMP 37.2; O2SAT 96
[2025-07-08] MEDS: Normal Saline Flush 10 ML SYR IVP ×4 (08:41→19:39)
[2025-07-08 11:16] VITALS: BP 114/60; PULSE 85; RESP 16; TEMP 36.4; O2SAT 92
--- NOTE | 2025-07-08 12:20 | W.PM.PROGNOT ---
Date of Service Date of service: 07/08/25 Time of Service: 12:20 Assessment and Plan Assessment and plan (1) Colitis: Status: Acute Assessment and plan: -Severe RUQ/flank pain out of proportion to exam, CT findings on admission consistent with ichemic bowel, however no ischemia on CTA 07/05 and bowel looked better. -Repeat lactate snormal, which is reassuring. -Despite pain, tolerating po. -C. diff negaitve. -Colonscopy 07/[address] Aguayo looked like ulcerative colitis. Stoppign antibiotics and started PO prednisone (2) GERD (gastroesophageal reflux disease): Status: Chronic Assessment and plan: -continue home PPI (3) Hypertension: Status: Chronic Assessment and plan: -was Holding losartan/HCTZ short term. -BP was increasing, losartan resumed (4) Liver dysfunction: Status: Acute Assessment and plan: -denies h/o cirrhosis but does have elevation of AST going back years. INR and bili more new which are concerning for failing liver function. -APAP level <2. -INR up to 2, gave 2 doses of vitamin K with drop in INR but did not normalize. -hepatitis panel negative - will set up with hepatology after discharge (5) Pneumonia: Status: Acute Assessment and plan: -Never finished therapy for pneumonia on recent admission, with new LLL infiltrate on admission CT. MRSA swab negative. -splenectomy raises infectious risk. -Has been on pip/tazo and doxycycline. -Will finish 5 day course of ceftriaxone and doxy on 07/09 (6) DVT prophylaxis: Status: Acute Assessment and plan: -INR elevated, but coming down. -Added enoxaparin 07/05. Subjective Subjective Interval history since last seen: Patient states that he is feeling better but is continuing to have some abdominal pain. Otherwise he has no other complaints or concerns at this time. Exam Narrative Exam Narrative: well appearing obese gentlemen sitting up on the edge of the bed in no acute distress, AOx4, heart RRR, lungs CTAB, abdomen with mild diffuse tenderness to palpation Objective Last Vital Signs Temp 97.5 F L 07/08/25 11:16 Pulse 85 07/08/25 11:16 Resp 16 07/08/25 11:16 BP 114/60 07/08/25 11:16 Pulse Ox 92 07/08/25 11:16 Laboratory Results - last 24 hr 07/04/25 07/07/25 07/08/25 18:52 16:10 06:50 WBC 9.71 RBC 3.96 L Hgb 12.7 L Hct 38.2 L MCV 97 H MCH 32.1 MCHC 33.2 D RDW 14.3 H Plt Count 237 MPV 9.7 PT 16.3 H INR 1.7 H Sodium 138 Potassium 3.4 L Chloride 100 Carbon Dioxide 29.9 Anion Gap 8.1 BUN 3 L Creatinine 0.7 Est GFR (CKD-EPI 2020) 105.49 Glucose 95 Calcium 8.8 Total Bilirubin 2.0 H AST 37 ALT 27 Alkaline Phosphatase 127 H Total Protein 7.5 Albumin 2.6 L Hep Bs Antigen Negative Hep Bs Antibody Negative Hep Bs Antibody, Quant <3.1 Hep B Core Total Ab Negative Hepatitis C Antibody Negative Time Spent with Patient Time Spent with Patient: >50 minutes Time was spent: preparing to see the patient(eg.review tests), obtaining and/or reviewing separately otained hiistory, ordering medications,tests, procedures, referring, communicating with other health resident care spec, indepentently interpreting results, counseling the patient and care coordination
[2025-07-08] MEDS: predniSONE 20 MG TAB 40 MG PO (13:31)
[2025-07-08] MEDS: Metoprolol CR 100 MG TABCR PO (14:29)
[2025-07-08 15:19] VITALS: BP 126/67; PULSE 79; RESP 16; TEMP 36.3; O2SAT 93
--- NOTE | 2025-07-08 15:19 | W.PM.PROGNOT ---
Date of Service Date of service: 07/08/25 Time of Service: 15:20 Assessment and Plan Assessment and plan (1) Colitis: Status: Acute Assessment and plan: At this point, I think is reasonable to continue Armen on prednisone as induction therapy for Crohn's flare. Will plan on 5 mg weekly taper, and then eventual referral [facility] to [facility] further recommendations for long-term management of Crohn's. At this point, I think it is reasonable to discharge him home, and will follow-up as an outpatient for review of the biopsy results Subjective Subjective Interval history since last seen: Armen tells me still having some abdominal pain, but certainly better than the past few days. He is been able to tolerate food without any vomiting. Exam GI Other: Abdomen is soft,, mildly distended. He is less tender than before. Objective Last Vital Signs Temp 97.5 F L 07/08/25 11:16 Pulse 85 07/08/25 11:16 Resp 16 07/08/25 11:16 BP 114/60 07/08/25 11:16 Pulse Ox 92 07/08/25 11:16 Laboratory Results - last 24 hr 07/07/25 07/08/25 16:10 06:50 WBC 9.71 RBC 3.96 L Hgb 12.7 L Hct 38.2 L MCV 97 H MCH 32.1 MCHC 33.2 D RDW 14.3 H Plt Count 237 MPV 9.7 PT 16.3 H INR 1.7 H Sodium 138 Potassium 3.4 L Chloride 100 Carbon Dioxide 29.9 Anion Gap 8.1 BUN 3 L Creatinine 0.7 Est GFR (CKD-EPI 2020) 105.49 Glucose 95 Calcium 8.8 Total Bilirubin 2.0 H AST 37 ALT 27 Alkaline Phosphatase 127 H Total Protein 7.5 Albumin 2.6 L Time Spent with Patient Time Spent with Patient: 25-34 minutes Time was spent: preparing to see the patient(eg.review tests), referring, communicating with other health director of primary care and counseling the patient
--- NOTE | 2025-07-08 15:36 | PHACLINREV_ITS ---
Pharmacy Admission Review Admission Clinical Review Admission Pharmacy Review: Body mass index [BMI] 45.0-49.9, adult (Acute) Liver dysfunction (Acute) DVT prophylaxis (Acute) Pneumonia (Acute) Colitis (Acute) No Known Allergies Allergy (Verified 07/04/25 08:39) Resuscitation Status Full Code Height 5 ft 10 in Weight 137.1 kg Pharmacy Admission Review Renal Dosing Renal Dosing: BUN 3 mg/dL (7-18) L 07/08/25 06:50 Creatinine 0.7 mg/dL (0.70-1.30) 07/08/25 06:50 Medications needing adjustments: Reviewed (CrCl 109.6 mL/min) List of meds needing interventions: Current medications are okay Anticoagulation Anticoagulation: Hgb 12.7 g/dL (13.5-17.5) L 07/08/25 06:50 Hct 38.2 % (40.0-50.0) L 07/08/25 06:50 Plt Count 237 10^3/uL (130-400) 07/08/25 06:50 INR 1.7 (0.9-1.1) H 07/07/25 16:10 Creatinine 0.7 mg/dL (0.70-1.30) 07/08/25 06:50 DVT Prophylaxis: Reviewed Medications: Enoxaparin (40mg q12h - BMI > 40) Opiate Usage Evaluate Pain Scale/Pains Meds: Reviewed (morphine 6mg IVP q4h PRN - 36mg/24hrs) Scheduled Bowel Reg ordered if on Opiates?: Yes (BID Miralax/docusate) Relevant Labs Relevant Labs: Sodium 138 mmol/L (136-145) 07/08/25 06:50 Potassium 3.4 mmol/L (3.5-5.1) L 07/08/25 06:50 Chloride 100 mmol/L (98-107) 07/08/25 06:50 Magnesium 1.9 mg/dL (1.8-2.4) 07/05/25 05:18 Electrolytes, C-Reactive P, ESR: Reviewed Cardiac Review Cardiac Review: Troponin I 8 ng/L (<or=76) 07/04/25 13:00 NT-Pro-B Natriuret Pep 755 pg/mL (<300) H 07/04/25 09:15 BP, HR, EF%: Reviewed (HR and BP WNL) List meds needing interventions: Has orders for losartan 50mg daily and metopro lol XL 100mg daily QTc Review QTc: Reviewed (459 from 07/04/25) IV to PO Switch IV Medications: Reviewed (ceftriaxone and morphine) Home Meds Home Med List reviewed: Intervened Relevent Home Meds Not ordered & why?: furosemide (confirmed with provider - on hold) Asked nurse to verify if patient takes losartan or losartan/HCTZ at home. Was on home med list as combo medication but fills losartan 50mg tablets per external fill history. Per nurse patient reports they take losartan only. Updated home med list, discontinued HCTZ order and informed provider Current Meds Current Medication Order Review: Intervened Comments: Metoprolol order put in with frequency of ONCE ALEC - copied from home med list. Due to this patient had not actually be receiving any doses since being admitted. Changed order to DAILY ALEC and informed provider. Corrected directions on home med list as well. Pharmacy Antibiotic Review Relevant Labs: WBC 9.71 10^3/uL (4.4-10.8) 07/08/25 06:50 Temperature 36.3 C Temperature 36.4 C Temperature 37.2 C Microbiology 07/05/25 10:01 Sputum Culture - Final Sputum Normal Gardenia Deysi albicans Gram Stain - Final Pharmacy Antibiotic Activity: C/S review and Reviewed, no change Comments: Patient is on ceftriaxone and PO doxycycline, day 4 out of 5, for pneumonia.
[2025-07-08] MEDS: cefTRIAXone 2 GM/50 ML BAG IVPB (17:01)
--- NOTE | 2025-07-08 17:46 | PDOC.CMPRO ---
Date of service: 07/08/25 Time of Service: 17:46 Care Management Progress Note Progress Note Text Progress Note Text: Armen was sitting on the edge of the bed when CM met with him. He stated that he is feeling better today than when he arrived. He expressed frustration with feeling sick for so long, and feels that he is finally getting some answers about why he has been in pain. He reported that per MD, he may be ready for discharge tomorrow; he stated that he is concerned that his pain will return once he is home, but that he is agreeable to discharge, if the MD feels he is ready. 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 Armen reported that his vehicle is here in the parking lot, and he plans to drive himself home. His primary concern is his pain level and how he will manage pain at home; CM recommended that he discuss this with the hospitalist, and follow up with his PCP in the community for ongoing management. CM will continue to follow. Discharge Potential Discharge Needs: PCP F/U Appt and Surgical F/U Appt Anticipated Barriers to Discharge: None Identified Patient/Family Education Needs: Review discharge instructions, discuss Ask Me Three Transportation: Private vehicle Plan: Anticipate Armen will be discharged home with no new services when medically stable. He will follow up with his community providers and plan of care and transport with family. CM will follow and continue too support discharge planning efforts. Social Determinants of Health Screening Social Determinants of health last assessed in clinic: 07/08/25 Will the Patient Participate in the Screening?: Yes Do you worry about having a steady place to live?: no Problems where you live: no known problems In the past 12 months, have you had to go without electric, gas, oil or water in your home?: no 1. Within the past 12 months, we worried whether our food would run out before we got money to buy more.: Don't know/refused 2. Within the past 12 months, the food we bought just didn't last and we didn't have money to get more.: Don't know/refused Has lack of transportation kept you from medical appointments or from doing things needed for daily living?: no Has anyone in your life made you feel unsafe or unsupported?: no How hard is it for you to pay for the very basics like food, housing, medical care, and heating? Would you say it is:: Not hard at all Do you want help finding or keeping work or a job?: I do not need or want help If for any reason you need help with day-to-day activities such as bathing, preparing meals, shopping, managing finances, etc., do you get the help you need?: I don?t need any help How often do you feel lonely or isolated from those around you?: Never Do you speak a language other than Kyrgy[place] at home?: Yes Does the patient want assistance with any of the above?: Yes Health Related Social Needs Health related social needs: education (Z55.6)
[2025-07-08 19:42] VITALS: BP 146/86; PULSE 70; RESP 17; TEMP 36.3; O2SAT 96
[2025-07-09 00:25] VITALS: BP 127/66; PULSE 67; RESP 18; TEMP 36.7; O2SAT 96
[2025-07-09] MEDS: Acetaminophen 325 MG TAB 650 MG PO (00:56)
[2025-07-09] MEDS: MORPHine 10 MG/ML VIAL 6 MG IVP ×2 (00:56→04:56)
[2025-07-09 03:03] VITALS: BP 132/63; PULSE 74; RESP 18; TEMP 36.2; O2SAT 93
[2025-07-09 06:42] LABS: HCT 38.6 % (40.0-50.0); HGB 13.1 g/dL (13.5-17.5); MCH 32.8 pg (27.0-33.0); MCHC 33.9 % (32.0-36.0); MCV 97 fL (80-95); MPV 9.4 fL (8.0-11.0); Platelet Count 245 10^3/uL (130-400); RBC 3.99 10^6/uL (4.36-5.78); RDW 14.1 % (11.8-14.1); RDW-SD 50.2 fL; WBC 13.41 10^3/uL (4.4-10.8)
[2025-07-09 06:52] LABS: INR 1.6 (0.9-1.1); Prothrombin Time 15.2 sec (9.1-11.1)
[2025-07-09 07:08] LABS: ALT 31 U/L (16-63); AST 37 U/L (15-37); Albumin 2.6 g/dL (3.4-5.0); Alkaline Phosphatase 140 U/L (46-116); Anion Gap 6.3 mmol/L (3-11); BUN 4 mg/dL (7-18); Bilirubin, Total 1.6 mg/dL (0.2-1.0); CO2 29.7 mmol/L (21.0-32.0); Calcium 9.0 mg/dL (8.5-10.1); Chloride 101 mmol/L (98-107); Estimated GFR 105.49 (mL/min/1.73m2); Glucose 118 mg/dL (74-106); Potassium 3.5 mmol/L (3.5-5.1); Sodium 137 mmol/L (136-145); Total Protein 7.4 g/dL (6.4-8.2)
[2025-07-09] MEDS: Pantoprazole 40 MG TABCR PO (07:33)
[2025-07-09] MEDS: oxyCODONE 5 MG TAB PO (09:15)
[2025-07-09] MEDS: guaiFENesin 600 MG TABCR PO (09:15)
[2025-07-09] MEDS: Doxycycline Hyclate 100 MG CAP PO (09:15)
[2025-07-09] MEDS: Metoprolol CR 100 MG TABCR PO (09:16)
[2025-07-09] MEDS: predniSONE 20 MG TAB 40 MG PO (09:16)
[2025-07-09] MEDS: Losartan 50 MG TAB PO (09:16)
[2025-07-09] MEDS: Enoxaparin 40 MG/0.4 ML SYR SC (09:17)
[2025-07-09] MEDS: Polyethylene Glycol 3350 17 GM PACKET PO (09:17)
[2025-07-09] MEDS: Simethicone 80 MG CHEW 40 MG PO (09:17)
[2025-07-09] MEDS: Normal Saline Flush 10 ML SYR IVP (09:18)
[2025-07-09 09:34] VITALS: BP 137/79; PULSE 78; RESP 16; TEMP 36.2; O2SAT 97
--- NOTE | 2025-07-09 09:37 | PDOC.CMPRO ---
Date of service: 07/09/25 Time of Service: 09:37 Care Management Progress Note Discharge Potential Discharge Needs: PCP F/U Appt Anticipated Barriers to Discharge: Medical Status Patient/Family Education Needs: Review discharge instructions, discuss Ask Me Three Transportation: Private vehicle Plan: Anticipate Armen will be discharged home with no new services when medically stable. He will follow up with his community providers and plan of care and transport with family. CM will follow and continue too support discharge planning efforts. Social Determinants of Health Screening Social Determinants of health last assessed in clinic: 07/08/25 Will the Patient Participate in the Screening?: Yes Do you worry about having a steady place to live?: no Problems where you live: no known problems In the past 12 months, have you had to go without electric, gas, oil or water in your home?: no Has lack of transportation kept you from medical appointments or from doing things needed for daily living?: no Has anyone in your life made you feel unsafe or unsupported?: no How hard is it for you to pay for the very basics like food, housing, medical care, and heating? Would you say it is:: Not hard at all Do you want help finding or keeping work or a job?: I do not need or want help If for any reason you need help with day-to-day activities such as bathing, preparing meals, shopping, managing finances, etc., do you get the help you need?: I don?t need any help How often do you feel lonely or isolated from those around you?: Never Do you speak a language other than Malay at home?: Yes Does the patient want assistance with any of the above?: Yes Health Related Social Needs Health related social needs: education (Z55.6)
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
--- NOTE | 2025-07-09 11:51 | PDOC.CMDIS ---
Date of service: 07/09/25 Time of Service: 11:51 LACE Index Scoring Tool Questions: Length of Stay (in days): 4 - 6 Was the patient admitted via the E.D.?: Yes Comorbidities: Chronic Pulmonary Disease and Liver or Renal Disease E.D. Visits: 1 Answers: Total Score: 13 Risk of Readmission: High Risk Care Management Discharge SDOH Health Related Social Needs: Health related social needs education
--- NOTE | 2025-07-13 03:34 | NUR.NOTE ---
This HS in pt chart per NEHA from [facility] BEDS AT THE [facility] for continuation of care. Documents faxed per request.NEHA uploaded by access to pt chart.
== END 2025-07-09 11:07 | disposition home or self-care (01) | DRG 385 ==
LOC: ER 10:57 → MS 13:21
PROVIDERS: Surgery; Admitting Provider Family Medicine; Emergency Provider Physician Assistant; PCP Internal Medicine; Responsible Provider Family Medicine; Visit Provider Family Medicine
PROC: 0DJD8ZZ Inspection of Lower Intestinal Tract, Via Natural or Artificial Opening Endoscopic (ICD-10-PCS; CPT 45378; principal; 2025-07-07 13:00)
DX: K50.10 Crohn's disease of large intestine without complications (principal); J18.9 Pneumonia, unspecified organism; Z68.41 Body mass index [BMI] 40.0-44.9, adult; I10 Essential (primary) hypertension; K21.9 Gastro-esophageal reflux disease without esophagitis; K76.89 Other specified diseases of liver; R59.0 Localized enlarged lymph nodes; D72.829 Elevated white blood cell count, unspecified; Z90.81 Acquired absence of spleen; G47.33 Obstructive sleep apnea (adult) (pediatric); E66.9 Obesity, unspecified; Z55.6 Problems related to health literacy
CPT/HCPCS: 45380; 00123; 36415; 71275; 74177; 80048; 80053; 80076; 83690; 85027; 86704; 86706; 86803; 87340; 87637; 87641; 88305; 93005; 96374; 99222; 99232; 99233; 99285; J1650; 71046; 74174; 80329; 81003; 81015; 82607; 83605; 83735; 83880; 84484; 85025; 85379; 85610; 85730; 87070; 87205; 93010; 94640; 99223; 99239; J0696; J2003; J2270; J2543; J2704; J3010; J3430; J3490; J7512; J7613; Q9967